=== PATIENT | female | born 1950 ===

== ENCOUNTER 2017-10-11 08:21 | Emergency (ER) | payer OTHER ==
[~2017-10-11] VITALS: Ht 167.6 cm; Wt 63.5 kg
[2017-10-11] MEDS ORDERED: ISOSORBIDE DINI30 MG (08:47)
[2017-10-11] MEDS ORDERED: LISINOPRIL5 MG (08:47)
[2017-10-11] MEDS ORDERED: SYNTHROID50 MCG (08:47)
== END 2017-10-11 14:22 | disposition home or self-care (01) ==
LOC: ER 08:21
DX: K57.30 Diverticulosis of large intestine without perforation or abscess without bleeding (principal); R10.84 Generalized abdominal pain

== ENCOUNTER 2017-11-12 06:27 | Day surgery (SDC) | payer OTHER ==
[~2017-11-12 06:27] MED LIST: ISOSORBIDE DINI30 MG; LISINOPRIL5 MG; SYNTHROID50 MCG
== END 2017-11-12 11:10 | disposition home or self-care (01) ==
LOC: AMB-ENDOS 06:27
DX: D12.5 Benign neoplasm of sigmoid colon (principal)